=== PATIENT | female | born 1945 | race Caucasian/White ===

== ENCOUNTER 2017-06-13 10:41 | Emergency (ER) | payer MEDICARE ==
[2017-06-13 10:58] VITALS: BP 153/86
--- NOTE | 2017-06-13 15:21 | UC ---
Agnes Rios Thomas, scribed for Katia Ni DO on 06/13/17 at 1203 . Skin Complaint HPI - HPI Summary HPI Summary: The pt is a 72 y/o F presenting to [facility] s/p a dog bite to her left elbow that occurred 12 days ago. The dog is a medium sized dog. Per photoengraving etcher documentation, the dog is up to date in its vaccination. The dog approached her and without warning it attacked her. Initially, the wound was an open gaping wound but it was not deep. The pain is described as an ache. The pt rates the pain 6/10. The pain is aggravated and alleviated by nothing. The patient has treated the bite with a hydrogen peroxide, sliced garlic, salt, and apple cider vinegar. She denies F/C/S. Previously the area had calor, although the patient says that it no longer has calor. She has not had any recent falls or confusion. - History of Current Complaint Chief Complaint: UCBiteInjury Time Seen by Provider: 06/13/17 11:52 Stated Complaint: DOG BITE Hx Obtained From: Patient Onset/Duration: Sudden Onset, Lasting Days - dog bite was 12 days ago, Still Present Timing: Constant Current Severity: Moderate Pain Intensity: 6 Pain Scale Used: 0-10 Numeric Location: Other - Left proximal, lateral forearm Character: Pain Aggravating Factor(s): Nothing Alleviating Factor(s): Nothing Associated Signs & Symptoms: Positive: Negative. Negative: Fever, Chills Related History: Other: - Dog bite on 06/01/17 - Allergy/Home Medications Allergies/Adverse Reactions: Allergies Allergy/AdvReac Type Severity Reaction Status Date / Time No Known Allergies Allergy Verified 06/13/17 10:54 Home Medications: Home Medications NK [No Home Medications Reported] 06/13/17 [History Confirmed 06/13/17] Review of Systems Constitutional: Other - NEGATIVE: F/S/C Skin: Other - Wound to her left elbow Musculoskeletal: Negative Neurological: Negative, Other - no recents confusion or unsteady gait All Other Systems Reviewed And Are Negative: Yes PMH/Surg Hx/FS Hx/Imm Hx Previously Healthy: Yes Cardiovascular History: Other Other Cardiovascular History: NEG: CHF Respiratory History: Other Other Respiratory History: NEG: COPD - Surgical History Surgical History: None - Family History Known Family History: Negative: Cardiac Disease, Other - NEG: [place] - Social History Lives: With Family Alcohol Use: Rare Substance Use Type: None Smoking Status (MU): Never Smoked Tobacco - Immunization History Most Recent Tetanus Shot: unk Physical Exam Triage Information Reviewed: Yes Appearance: Well-Appearing, No Pain Distress, Well-Nourished Vital Signs: Initial Vital Signs Temp 99 F 06/13/17 10:55 Pulse 83 06/13/17 10:55 Resp 18 06/13/17 10:55 BP 153/86 06/13/17 10:55 Pulse Ox 100 06/13/17 10:55 Eyes: Positive: Conjunctiva Clear. Negative: Discharge ENT: Positive: Hearing grossly normal. Negative: Muffled/hoarse voice Neck exam: Normal Neck: Positive: Supple Respiratory: Positive: Lungs clear, Normal breath sounds, No respiratory distress, No accessory muscle use Cardiovascular: Positive: RRR, No Murmur Abdomen Description: Positive: Nontender, Soft Bowel Sounds: Positive: Present Musculoskeletal Exam: Normal Neurological: Positive: Alert, Muscle Tone Normal Psychological Exam: Normal Psychological: Positive: Age Appropriate Behavior Skin Exam: Normal Skin: Positive: Other - Warm, Dry, Normal Color. She has a 6cm x 3.5cm wound at the proximal end of her lateral forearm. There is no surrounding erythema, swelling/induration, drainage, or calor. No sign of infection. There is granulation tissue present in the bed of the wound but there also appears to be some devitalized/necrotic tissues at the periphery of the wound. Course/Dx - Course Course Of Treatment: The pt is a 72 y/o F [place] [facility] [place] dog bite to her left elbow that occurred 12 days ago. The dog is a medium sized dog. Per photoengraving etcher documentation, the dog is up to date in its vaccination. The dog approached her and without warning it attacked her. Initially, the wound was an open gaping wound but it was not deep. The pain is described as an ache. The pt rates the pain 6/10. The pain is aggravated and alleviated by nothing. The patient has treated the bite with a hydrogen peroxide, sliced garlic, salt, and apple cider vinegar. She denies F/C/S. Previously the area had calor, although the patient says that it no longer has calor. She has not had any recent falls or confusion. Medications reviewed this visit. High blood pressure noted. Patient is diagnosed with dog bite and elevated blood pressure without a diagnosis of hypertension. Patient is stable and will be discharged home. Patient is agreeable to this plan. - Differential Diagnoses - Skin Complaint Differential Diagnoses: Abscess, Cellulitis, Other - animal bite, wound infection - Diagnoses Provider Diagnoses: Dog bite, elevated blood pressure without a diagnosis of hypertension. Discharge - Discharge Plan Condition: Stable Disposition: HOME Patient Education Materials: Animal Bite (ED), Wound Healing and Your Diet (ED) Additional Instructions: Your blood pressure was elevated at this visit. That does not mean you have hypertension, it is probably due to your current condition. Please follow up with your primary care provider. FOLLOW-UP CARE: WE HAVE ORDERED A WOUND CARE CONSULT FOR YOU. YOU SHOULD BE HEARING FROM THE WOUND CARE CENTER SOON. AND You should establish with a private physician for follow-up care in 2-4 days. If you are unable to get a timely appointment, or if you are worsening, call us or return for re-evaluation. An additional resource available to assist in finding the appropriate physician for your health care needs is the [facility]ician Referral Center. You may contact them by calling [phone]. Given our conversation, two primary care providers that might work for you are Dr Bejarano at [facility] and Madeline Rodriguez at [facility]. The documentation as recorded by the Agnes wheeler Thomas accurately reflects the service I personally performed and the decisions made by me, Katia Ni DO.
== END 2017-06-13 12:37 | disposition home or self-care (01) ==
LOC: UCEAST 10:41
DX: S51.052A Open bite, left elbow, initial encounter (principal); W54.0XXA Bitten by dog, initial encounter; Y92.9 Unspecified place or not applicable; R03.0 Elevated blood-pressure reading, without diagnosis of hypertension
CPT/HCPCS: 99202; G0463